=== PATIENT | male | born 1935 | race Caucasian/White ===

== ENCOUNTER 2024-04-26 23:53 | Emergency (ER) | payer SELFPAY ==
[2024-04-26 23:54] VITALS: BP 168/81
[2024-04-27] VITALS (17 sets, daily range): BP systolic 102–156; BP diastolic 48–68
--- NOTE | 2024-04-27 00:57 | ED.GENMED ---
History of Present Illness
<Emerson Byrne PA-C - Last Filed: 04/27/24 01:57>
General
Chief Complaint: Jaw Pain
Source: patient
Exam Limitations: none
Time Seen by Provider: 04/27/24 00:09
History of Present Illness
History of Present Illness:
88-year-old male with history of Parkinson's presents with daughter from facility stating that his jaws locked open. He has a history of prior jaw dislocations. He was receiving Botox injections for this. His most recent dislocation was about a
year and a half ago. They tried going to the dentist prior to arrival and the dentist tried however they were unsuccessful.
Phy Exam
<Emerson Byrne PA-C - Last Filed: 04/27/24 01:57>
Physical Exam
Physical Exam:
General: chronically ill-appearing male no acute respiratory distress
HEENT: Normal cephalic jaw is held in the open position. Patient has no teeth.
Extremities: No cyanosis
Course
<Emerson Byrne PA-C - Last Filed: 04/27/24 01:57>
Orders/Labs/Results
Orders:
Orders
04/27/24 00:34
Propofol [Diprivan] 20 ml .ROUTE .STK-MED
Vital Signs
Initial and Last Documented VS:
Initial Vital Signs
Pulse Resp BP Pulse Ox
65 20 168/81 94
04/26/24 23:54 04/26/24 23:54 04/26/24 23:54 04/26/24 23:54
Last Documented Vital Signs
Temp Pulse Resp BP Pulse Ox
98.3 F 67 22 109/59 91
04/27/24 01:43 04/27/24 01:43 04/27/24 01:43 04/27/24 01:43 04/27/24 01:43
<Shankar Marquez, DO - Last Filed: 04/27/24 01:31>
Orders/Labs/Results
Orders:
Orders
04/27/24 00:34
Propofol [Diprivan] 20 ml .ROUTE .STK-MED
Vital Signs
Initial and Last Documented VS:
Initial Vital Signs
Pulse Resp BP Pulse Ox
65 20 168/81 94
04/26/24 23:54 04/26/24 23:54 04/26/24 23:54 04/26/24 23:54
Last Documented Vital Signs
Temp Pulse Resp BP Pulse Ox
98.3 F 67 22 109/59 91
04/27/24 01:43 04/27/24 01:43 04/27/24 01:43 04/27/24 01:43 04/27/24 01:43
Procedures
<Shankar Marquez, DO - Last Filed: 04/27/24 01:31>
Moderate Sedation
ASA Risk Score: Class III
Chart and allergies reviewed: Yes
Consent for anesthesia obtained: Yes
Time out completed (validating right patient & procedure): Yes
Moderate Sedation Start Time(when first medication is given): 01:03
History of difficult intubation: No
Airway free of obstruction: Yes
Patient has a gag reflex: Yes
Patient is able to open mouth: Yes
Patient has no dentures: Yes
Patient has no loose teeth: Yes
Medication administered by Provider during Moderate Sedation: IV Propofol (mg)
Total dose administered: 50
Time drug administered: 01:03
Moderate Sedation Procedure End Time: 01:13
Joint/Fracture Reduction
Bilateral Jaw:
Indication for procedure:: bilateral jaw dislocation
Procedure completed by: Shankar Marquez DO
Consent form signed: Yes
Joint reduced: with anesthesia sedation
Injury was: closed
Further treatement: no treatment needed
Post reduction exam: stable
Capillary Refill: normal
<Emerson Byrne PA-C - Last Filed: 04/27/24 01:57>
MDM/Problems Addressed
Differential Diagnosis Includes:
Likely jaw dislocation. Multiple attempts were made without sedation however these were unsuccessful. Emergency room attending also tried without relief. Patient has multiple medical issues and family was initially hesitant to sedate the patient
however given her unsuccessful attempts without sedation family agreeable to sedation. Written consent obtained for moderate sedation with the mandible
<Emerson Byrne PA-C - Last Filed: 04/27/24 01:57>
*Critical Care Note
Total Time (30-74mins, 75-104mins- exclusive of procedures): Not Applicable
<Emerson Byrne PA-C - Last Filed: 04/27/24 01:57>
Update Note
Update Note:
The consent was signed by the patient's daughter for moderate sedation. A total of 50 mg of propofol was used to sedate the patient. The jaw was then easily reduced. Patient recovered from sedation and was discharged back to facility. Patient
daughter prefer to take him back personally
ED Attending Note
<MARCELLA Dietrich Last Filed: 04/27/24 01:57>
-
Portions of this chart may have been created with voice recognition software.� Occasional wrong word or��sound alike� substitutions may have occurred due to the inherent limitations of voice recognition software.
<Shankar Marquez DO - Last Filed: 04/27/24 01:31>
ED Attending Note
Patient seen and examined by attending physician: Yes
I performed the substantive portion of visit, reviewed & personally made and approve the management plan that is documented in note by myself or KATHLEEN.: Yes
ED Attending Note:
I have seen and evaluated the patient with a [id number] encounter. I have spoken to the advance practicer provider and involved in the medical history, the physical exam, medical decision making.
Evaluation and management service: agree unless noted differently below.
Results interpretation: agree unless noted differently below.
Focused HPI: 88-year-old male presenting with bilateral jaw dislocation. Daughter at bedside states this has happened before. Because of his Parkinson's disease, daughter was hoping we could reduce the jaw without sedation
Physical exam: Mouth wide open unable to close. Protecting airway
Medical Decision Making: Multiple attempts made to reduce the jaw without sedation. Patient required propofol sedation and it was reduced easily.
Discharge Plan
Departure
Patient Disposition: Home (Routine Discharge)
Date of Disposition: 04/27/24
Time of Disposition: 01:56
Patient with high blood pressure during this ER visit?: No
Discharge Problem:
Dislocated jaw
Instructions: MODERATE SEDATION ADULT
Referrals:
UNKNOWN - PT DOES,NOT KNOW [Family Provider] -
Activity Restrictions/Additional Instructions:
Please return here for worsening symptoms otherwise follow-up with your oral surgeon
Interventions
Interventions:
*Risk Screen - Suicide Last Done: 04/27/24 00:55
*General Assessment Last Done: 04/27/24 00:58
*Neglect/Abuse Screening Last Done: 04/27/24 00:01
ED- Fall Risk Assessment Last Done: 04/27/24 00:59
*ED COVID-19 Vaccine History Last Done: 04/27/24 00:58
ED-EENT Assessment Last Done: 04/27/24 00:06
ED- Cardiac Assessment Last Done: 04/27/24 00:45
Discharge Date and Time
Print Language: CZECH
== END 2024-04-27 02:18 | disposition home or self-care (01) ==
LOC: EMR 23:53
PROVIDERS: EMERGENCY PHYSICIAN Student in an Organized Health Care Education/Training Program
DX: S03.03XA Dislocation of jaw, bilateral, initial encounter (principal); X58.XXXA Exposure to other specified factors, initial encounter; G20.A1 Parkinson's disease without dyskinesia, without mention of fluctuations
CPT/HCPCS: 99285; 21480; 99152